=== PATIENT | female | born 1990 | race African-American/Black ===

== ENCOUNTER 2024-02-01 17:07 | Emergency (ER) | payer SELFPAY ==
[2024-02-01 17:12] VITALS: BP 152/91; PULSE 72; RESP 20; TEMP 36.8; O2SAT 96; BMI 40.5
--- NOTE | 2024-02-01 17:15 | ED.GENADULT ---
HPI - General Adult General Chief complaint: Dental/Oral Stated complaint: left lower tooth pain/right side hurts Time Seen by Provider: 02/01/24 18:21 Source: patient Mode of arrival: ambulatory Limitations: no limitations History of Present Illness ED Provider: LUKAS MOROCHO PA-C HPI narrative: 33 year old female presents to the emergency department today for evaluation of left lower dental pain x weeks. Dental pain is localized to left lower molar. No radiation. No trauma or injury to the tooth. She has not noticed any drainage.She states that she has been taking an old prescription of amoxicillin twice daily for the last 7 days. States she does not currently have health insurance and is unable to follow-up with a dentist. She also reports sore throat x 24 hours. Admits to having a fever of 103F yesterday and 101F todays. she has been taking Motrin at home with her last dose being 4 hours ago. Endorses normal PO intake. Denies known sick contacts. Denies dysphagia, difficulty controlling secretions, cough, ear pain., N/V. Related Data Previous Rx's ?Medication ?Instructions ?Recorded benzocaine 15 mg-menthol 2.6 mg 1 flaca mucous membrane Q2-4H PRN 02/01/24 lozenges (Cepacol Sore Throat sore throat #16 ea (benzocaine-menthol)) penicillin V potassium 500 mg 500 mg PO BID 10 days #20 tabs 02/01/24 tablet prednisone 20 mg tablet 40 mg (2 x 20 mg) PO DAILY 5 days 02/01/24 #10 tabs tramadol 50 mg tablet 50 mg PO Q8H PRN pain (scale score 02/01/24 4-6) #7 tabs Allergies Allergy/AdvReac Type Severity Reaction Status Date / Time No Known Allergies Allergy Verified 02/01/24 17:16 [No Known Allergies*] Review of Systems Review of Systems: Constitutional: No fever, chills, fatigue, night sweats, weight changes ENT/Mouth: No ear pain, hearing loss, nasal congestion, sinus pain, rhinorrhea, +sore throat, +odynophagia, No dysphagia, +dental pain Eyes: No eye pain, swelling, redness, vision changes, discharge Cardio: No chest pain, palpitations, [place], orthopnea, peripheral edema Pulm: No SOB, cough, sputum, wheezing, dyspnea, hemoptysis GI: No nausea, vomiting, hematemesis, abdominal pain, diarrhea, constipation, hematochezia, melena : No irregular bleeding, dysuria, frequency, urgency, hesitancy, hematuria, flank pain MSK: No back pain, neck pain, joint pain, myalgias Skin: No lesions, rashes Neuro: No weakness, numbness, paresthesias, LOC, dizziness, headache All other systems reviewed and are negative. [facility] Past Medical History Attestation statement: The following information was validated with the patient. Source: old records reviewed and nursing notes reviewed Social History Social History Advance Directives: No Advance Directives Information Provided: No Do you have a plan to hurt others: No Plan Physical Exam ED Vital Signs: Vital Signs - 24 hr 02/01/24 17:12 02/01/24 18:44 Temperature 98.2 F 97.5 F Pulse Rate 72 63 Respiratory Rate 20 16 Blood Pressure 152/91 H 122/82 Pulse Oximetry 96 97 Oxygen Delivery Method Room Air Room Air BMI result Body Mass Index 40.5 patient hypertensive. Afebrile. Not hypoxic. General: Well appearing, in no acute distress. Skin: Warm, dry, intact. No rashes or lesions. Head: Normocephalic, atraumatic. EENT: Hearing is intact b/l. Conjunctiva clear. PERRLA. EOM intact. Moist mucous membranes.?posterior oropharynx erythematous with bilateral tonsillar swelling and exudates. Uvula midline. Controlling secretions and speaking complete sentences. No muffled voice. No facial edema. Tongue and lips wnl/ multiple dental caries and poor dentition. left lower molar with localized periapical swelling to the buccal ginginva. No pointing. No active bleeding/ discharge. TTP. No palpable fluctuance. no anterior neck swelling. Neck: Tender to palpation along anterior cervical chain without palpable lymphadenopathy. no masses. Cardiac: Chest wall symmetric. RRR Lungs: Normal respiratory effort without accessory muscle use. CTA bilaterally Abdomen: Soft, non-tender, non-distended. No rebound tenderness or guarding. no splenomegally. Neuro: AOx3. Normal speech. Ambulating with steady gait. Course Course Course Narrative: This is a Rapid Medical Examination (RME) performed by Porsche Morocho PA-C in triage. Full HPI, ROS, assessment and treatment plan per primary provider in the Main ED. 33 yo female here for eval of left lower dental pain and sore throat x weeks. she has been taking an old amoxicillin prescription, twice daily for the last 7 days. states she does not have health insurance currently and cannot see her dentist. reprots fever of 103F yesterday and 101F today, taking motrin at home. last dose 4 hours ago + afebrile. general poor dentition with multiple dental caries. no obvious periapical abscess. b/l tonsillar edema/ erythema with exudates. controlling secretions, speaking in full sentences. ttp along anterior cervical chain, no palpable LAD. airway patent. Plan: basic labs, viral/ strep swabs, mono Reevaluation(s) Reevaluation #1: 1123 -- CBC with leukocytosis to 13 without left shift. Chemistry without acute electrolyte abnormality requiring intervention. No CARROLL. Liver function WNL. No transaminitis. She tested negative for COVID, flu, RSV. Negative for mono. She tested positive for strep throat. There is no obvious dental infection or drainable abscess. she was given a dose of Decadron in the ED today. Will send her home with penicillin, prednisone, Cepacol throat lozenges and tramadol for dental pain. Referral for [facility] provided. Patient has remained stable throughout ED visit today. Discussed worrisome signs and symptoms and when to return to the ED. All questions answered at this time. Patient is agreeable with disposition and stable for discharge. Medications Administered Discontinued Medications Generic Name Dose Route Start Last Admin Trade Name Manuel PRN Reason Stop Dose Admin Dexamethasone Sodium Phosphate 10 mg 02/01/24 18:21 02/01/24 18:38 Dexamethasone Sod Phosphate 10 Mg/Ml Vial IVPUSH 02/01/24 18:22 10 mg ONCE ONE Administration Medical Decision Making Medical Decision Making MDM Narrative: 33 year old female presents to the emergency department today for evaluation of left lower dental pain x weeks. Patient initially hypertensive to 152/91, vitals otherwise WNL. Afebrile. Not hypoxic. She is generally well appearing and in NAD. Posterior oropharynx erythematous with bilateral tonsillar swelling and exudates. Uvula midline. Controlling secretions and speaking complete sentences. No muffled voice. No facial edema. Tongue and lips wnl/ multiple dental caries and poor dentition. left lower molar with localized periapical swelling to the buccal ginginva. No pointing. No active bleeding/ discharge. TTP. No palpable fluctuance. No anterior neck swelling. Differential diagnosis includes dental caries, dental infection, dental abscess, viral syndrome, strep throat, mono. 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 Plan for basic blood work, viral/ strep swabs, mono testing Differential Diagnosis Differential Diagnoses: The differential diagnosis associated with the presentation includes as above. Admission/Observation Not indicated Lab Data MDM Lab Attestation statement: I reviewed the patient's lab results. as above 02/01/24 17:25 02/01/24 17:25 Labs: Lab Results 02/01/24 Range/Units 17:25 WBC 13.0 H (4.8-10.8) X10*3/uL RBC 4.52 (4.20-5.50) X10*6/uL Hgb 13.0 (12.0-16.0) g/dl Hct 40.1 (37.0-47.0) % MCV 88.7 (80.0-98.0) fL MCH 28.8 (27.0-33.0) pg MCHC 32.4 (31.0-35.0) g/dl RDW 13.7 (11.0-16.0) % Plt Count 233 (160-400) X10*3/uL MPV 10.5 (9.4-12.3) fL Immature Gran % (Auto) 0.3 (0.0-0.4) % Neut % (Auto) 73.0 (45-73) % Lymph % (Auto) 18.8 L (20-40) % Mccone % (Auto) 6.9 (2-11) % Eos % (Auto) 0.6 (0-4) % Baso % (Auto) 0.4 (0-2) % Lymph # (Auto) 2.4 (1.2-4.9) X10*3/uL Mccone # (Auto) 0.9 (0.1-1.2) X10*3/uL Eos # (Auto) 0.1 (0.0-0.4) X10*3/uL Baso # (Auto) 0.1 (0.0-0.2) X10*3/uL Abs Immat Gran (auto) 0.04 H (0.00-0.03) X10*3/uL Absolute Neuts (auto) 9.5 H (2.0-8.3) x10*3/uL Absolute Nucleated RBC 0.000 (0.0-0.012) X10*3/uL Nucleated RBC % (auto) 0.0 (0.0-0.2) /100WBC Sodium 141 (135-145) mmol/L Potassium 3.8 (3.3-5.1) mmol/L Chloride 106 (96-108) mmol/L Carbon Dioxide 26 (22-29) mmol/L Anion Gap 13 (12-20) BUN 8 L (9-16) mg/dL Creatinine 0.89 (0.5-1.4) mg/dL Estim Creat Clear Calc 118.9 Estimated GFR > 60 Random Glucose 102 (60-115) mg/dL Calcium 9.1 (8.4-10.2) mg/dL Total Bilirubin 0.2 (0.0-1.0) mg/dL AST 17 (5-31) U/L ALT 22 (0-31) U/L Alkaline Phosphatase 65 (39-117) U/L Total Protein 7.3 (6.5-8.0) g/dL Albumin 3.8 (3.5-5.0) g/dL Monoscreen Negative (Negative) Influenza Type A (PCR) NEGATIVE (Negative) Influenza Type B (PCR) NEGATIVE (Negative) RSV RNA Qual (PCR) NEGATIVE (Negative) SARS-CoV-2 RNA (RT-PCR) NEGATIVE (Negative) S. pyogenes GrpA HENRY Positive A (Negative) External Record Review External record reviewed: Inpatient record Prescription Management I considered prescription management with: Antibiotic ( Penicillin) and Other ( Cepacol, prednisone, tramadol) Social Determinants Patient?s care significantly limited by Social Determinants of Health including: Other Social Determinant of Health Critical Care Time Critical Care Time Critical Care Time: No Discharge Plan Discharge Clinical Impression: Acute streptococcal pharyngitis, Dental caries, Dental infection Patient Disposition: Home, Self-Care Instructions: Strep Throat (ED), Tooth Extraction (DC) Additional Instructions: You were evaluated in ED today for dental pain and sore throat. You have a dental infection. You also tested positive for strep throat. Penicillin is an antibiotic that has been sent to your pharmacy. Take this twice daily for the next 10 days to treat strep throat. Do not stop taking these antibiotics early or miss any doses as this may cause infection to return or worsen. Cepacol throat lozenges have been sent to your pharmacy to help with throat pain. Take tylenol/ motrin at home as needed for pain/ fevers. Tramadol is a pain medication that has been sent to your pharmacy for you to take for break-through pain. Use this with caution. YOU NEED TO FOLLOW UP WITH A DENTIST. You have been provided with a referral to [facility]. They are currently taking new clients. Call them to make an appointment. They will not call you. Make sure to change your toothbrush as this contains bacteria. Strep throat is contagious. If anyone else in your household is exhibiting symptoms, please advise them to come to the ED, urgent care, or to see their primary care provider. Return to the Emergency Department if you experience worsening or uncontrolled pain, tongue swelling, difficulty swallowing, change in your voice, difficulty breathing, fevers 100.4?F or greater, recurrent vomiting, development of a rash, or any other concerning symptoms. In the case of emergency, call 911. [facility]: [phone] [id number] [facility] [id number] Prescriptions: New penicillin V potassium 500 mg tablet 500 mg PO BID 10 Days Qty: 20 0RF Cepacol Sore Throat (jordy-men) 15-2.6 mg lozenge 1 flaca mucous membrane Q2-4H PRN (Reason: sore throat) Qty: 16 0RF tramadol 50 mg tablet 50 mg PO Q8H PRN (Reason: pain (scale score 4-6)) Qty: 7 0RF prednisone 20 mg tablet 40 mg PO DAILY 5 Days Qty: 10 0RF Interventions: ED Discharge Assessment Last Done: 02/01/24 18:50 Discharge Date/Time: 02/01/24 18:50 Print Language: Frisian
[2024-02-01 17:48] LABS: MANUAL DIFF FLAG NO
[2024-02-01 17:54] LABS: Basophils Absolute Auto 0.1 X10*3/uL (0.0-0.2); Basophils Percent Auto 0.4 % (0-2); Eosinophils Absolute Auto 0.1 X10*3/uL (0.0-0.4); Eosinophils Percent Auto 0.6 % (0-4); Hematocrit 40.1 % (37.0-47.0); Imm Gran Abs Auto 0.04 X10*3/uL (0.00-0.03); Imm Gran Pct Auto 0.3 % (0.0-0.4); Lymphocytes Absolute Auto 2.4 X10*3/uL (1.2-4.9); Lymphocytes Percent Auto 18.8 % (20-40); Mean Corpuscular HGB Conc 32.4 g/dl (31.0-35.0); Mean Corpuscular Hemoglobin 28.8 pg (27.0-33.0); Mean Corpuscular Volume 88.7 fL (80.0-98.0); Mean Platelet Volume 10.5 fL (9.4-12.3); Monocytes Absolute Auto 0.9 X10*3/uL (0.1-1.2); Monocytes Percent Auto 6.9 % (2-11); Neutrophils Absolute Auto 9.5 x10*3/uL (2.0-8.3); Platelet Count 233 X10*3/uL (160-400); Red Blood Count 4.52 X10*6/uL (4.20-5.50); Red Cell Distribution Width 13.7 % (11.0-16.0)
[2024-02-01 18:00] LABS: IDNOW Serial# 08D9AD1C; Monotest Negative (Negative); Strep A Nucleic Acid Positive (Negative)
[2024-02-01 18:03] LABS: Alanine Aminotransferase 22 U/L (0-31); Albumin Level 3.8 g/dL (3.5-5.0); Alkaline Phosphatase 65 U/L (39-117); Anion Gap 13 (12-20); Aspartate Amino Transferase 17 U/L (5-31); Bilirubin Total 0.2 mg/dL (0.0-1.0); Blood Urea Nitrogen 8 mg/dL (9-16); Calcium 9.1 mg/dL (8.4-10.2); Carbon Dioxide 26 mmol/L (22-29); Chloride 106 mmol/L (96-108); Creatinine Clr Calc Pharmacy 118.9; Estimated Glomerular Filt Rate > 60; Glucose Random 102 mg/dL (60-115); Potassium 3.8 mmol/L (3.3-5.1); Sodium 141 mmol/L (135-145); Total Protein 7.3 g/dL (6.5-8.0)
[2024-02-01 18:27] LABS: Influenza A PCR NEGATIVE (Negative); Influenza B PCR NEGATIVE (Negative); Resp Syncy Virus RNA Qual PCR NEGATIVE (Negative); SARS COV2 PCR INHOUSE NEGATIVE (Negative)
[2024-02-01] MEDS: dexAMETHasone sod phosphate 10 MG/ML VIAL IVPUSH (18:38)
[2024-02-01 18:44] VITALS: BP 122/82; PULSE 63; RESP 16; TEMP 36.4; O2SAT 97
[2024-02-01 18:50] VITALS: BP 122/82; PULSE 63; RESP 16; TEMP 36.4; O2SAT 97
== END 2024-02-01 18:50 | disposition home or self-care (01) ==
PROVIDERS: Physician Assistant Medical; Emergency Provider Emergency Medicine Emergency Medical Services
DX: J02.0 Streptococcal pharyngitis (principal); K04.7 Periapical abscess without sinus; K02.9 Dental caries, unspecified; K08.89 Other specified disorders of teeth and supporting structures; Z03.818 Encounter for observation for suspected exposure to other biological agents ruled out
CPT/HCPCS: 0241U; 80053; 85025; 86308; 87651; 96374; 99283; 99284; J1100

== ENCOUNTER 2024-07-31 17:19 | Emergency (ER) | payer SELFPAY ==
[2024-07-31 17:53] VITALS: BP 121/82; PULSE 80; RESP 20; TEMP 36.7; O2SAT 98; BMI 42.0
--- NOTE | 2024-07-31 18:11 | ED_ITS ---
HPI - General Adult General Chief complaint: Skin/Abscess/Foreign Body Stated complaint: boil on left side Time Seen by Provider: 07/31/24 19:53 Source: patient Mode of arrival: ambulatory Limitations: no limitations History of Present Illness ED Provider: philip martel np HPI narrative: patient is a 34-year-old female who presents emergency department for evaluation of a cyst along the left lateral chest wall. Onset 5-6 days ago. Increasing in size pain and redness with localized swelling. She denies any additional skin rashes or lesions. Denies any history of prior abscesses or cys ts requiring incision and drainage. Denies any trauma to the area. Denies any fevers or chills. She is not a diabetic. Related Data Previous Rx's ?Medication ?Instructions ?Recorded benzocaine 15 mg-menthol 2.6 mg 1 flaca mucous membrane Q2-4H PRN 02/01/24 lozenges (Cepacol Sore Throat sore throat #16 ea (benzocaine-menthol)) penicillin V potassium 500 mg 500 mg PO BID 10 days #20 tabs 02/01/24 tablet prednisone 20 mg tablet 40 mg (2 x 20 mg) PO DAILY 5 days 02/01/24 #10 tabs tramadol 50 mg tablet 50 mg PO Q8H PRN pain (scale score 02/01/24 4-6) #7 tabs cephalexin 500 mg capsule 500 mg PO QID #27 caps 07/31/24 Allergies Allergy/AdvReac Type Severity Reaction Status Date / Time No Known Allergies Allergy Verified 07/31/24 17:56 [No Known Allergies*] Review of Systems Review of Systems: Yes all other systems are reviewed and are negative PMFSH Past Medical History Attestation statement: The following information was validated with the patient. Source: old records reviewed Social History Social History Smoked in Last 30 Days: Yes Use of substances other than those prescribed or required for medical reasons: Yes Substance Use Type: Marijuana Advance Directives: No Advance Directives Information Provided: Yes Do you have a plan to hurt others: No Plan Patient : No Physical Exam ED Vital Signs: Vital Signs - 24 hr 07/31/24 17:53 07/31/24 19:53 Temperature 98.0 F 98.1 F Pulse Rate 80 72 Respiratory Rate 20 16 Blood Pressure 121/82 124/68 Pulse Oximetry 98 99 Oxygen Delivery Method Room Air Room Air BMI result Body Mass Index 42.0 Appearance: Alert.?Oriented to person, place and time. No acute distress.?N ormal affect. CVS: Heart sounds normal. Normal heart rate and rhythm.? Pulses normal.?? Respiratory: No respiratory distress.? Lung sounds clear to auscultation bilaterally?? Abdomen: Soft and non-tender. Normoactive bowel sounds. Skin: Skin warm and dry.? Normal skin color.? Left lateral chest wall with 1 cm abscess fluctuant, scant active serosanguineous drainage, surrounding erythema tenderness upon palpation, it is present between skin folds Extremities: No lower extremity edema.? Neuro: Moves all extremities spontaneously. Sensation intact bilaterally. Ambulates with normal steady gait. Course Course Course Narrative: RME: 34 year female presents to ED for left side rib border that is red and increased in size with swelling. Patient denies having any recent trauma. Ultrasound done at triage shows collection of pus in boil that is erythatmouts and tenderness on palpation. patient to be seen in the ED Medications Administered Discontinued Medications Generic Name Dose Route Start Last Admin Trade Name Freq PRN Reason Stop Dose Admin Cephalexin HCl 500 mg 07/31/24 20:35 07/31/24 21:22 Cephalexin 500 Mg Capsule PO 07/31/24 20:36 500 mg ONCE ONE Administration Lidocaine HCl 5 ml 07/31/24 20:09 07/31/24 21:22 Lidocaine Hcl 1 % Mpf 5 Ml Vial SUBCUT 07/31/24 20:10 5 ml ONCE ONE Administration Procedures Abscess I/D Site: chest Side (if applicable): left Local Anesthetic: lidocaine 1% Amount of anesthesia used (mL): 3 Technique: incised with blade Amount of fluid expressed (mL): 5 Irrigation: Yes Packing used?: none Medical Decision Making Medical Decision Making MDM Narrative: patient is a 34 year old female with past history of obesity who presents emergency department for evaluation they left lateral chest wall abscess as per HPI. History physical exam consistent with abscess And surrounding cellulitis. There is scant serosanguineous drainage, upon palpation able to manually express or decrease the central fluctuance it is present.. No systemic toxicity, and patient is well-appearing. There is surrounding cellulitis. Not consistent with necrotizing fasciitis, myositis, DVT, osteomyelitis. review Indication for incision and drainage, obtained patient consent patient is now status post incision and drainage of abscess and tolerated the procedure well. No complications. No labs or imaging indicated at this time. Will discharge home with course of oral antibiotics and symptomatic treatment instructions. Discussed reasons to return to the emergency department, and follow-up with primary care provider. Patient agreeable with plan of care. Differential Diagnosis Differential Diagnoses: The differential diagnosis associated with the presentation includes ( see narrative above) External Record Review External record reviewed: Outpatient record Prescription Management I considered prescription management with: Pain Medication ( acetaminophen/ibuprofen) and Antibiotic Discharge Plan Discharge Clinical Impression: Abscess of skin or subcutaneous tissue Patient Disposition: Home, Self-Care Instructions: Abscess (ED) Additional Instructions: You were seen in the emergency department today for evaluation of a lap abscess to the left lateral chest wall. This was drained in the emergency department. As discussed, this may continue to drain over the next couple of days. When you can please paper products inspector the shower and be sure to let the hot water rinse over this area for 10-15 minutes in addition to applying warm compresses for 10 15 minutes 3-4 times daily to prevent any additional drainage. You have been started on a course of antibiotics to take by mouth, please complete the entire course, do not stop taking early risk of any doses he. If you begin to feel better. You can take ibuprofen 200 mg, 3 tablets (600mg) every 6-8 hours as needed for pain, in addition to Tylenol 500 mg, 2 tablets (1,000mg) every 4-6 hours as needed for pain, but not to exceed 3 doses daily (3,000mg).? Follow-up with your primary care doctor. Return to emergency department any new or worsening symptoms or concerns which includes but is not limited to fevers, chills, severe worsening pain, increased redness swelling Prescriptions: New cephalexin 500 mg capsule 500 mg PO QID Qty: 27 0RF No Action penicillin V potassium 500 mg tablet 500 mg PO BID 10 Days Qty: 20 0RF Cepacol Sore Throat (jordy-men) 15-2.6 mg lozenge 1 flaca mucous membrane Q2-4H PRN (Reason: sore throat) Qty: 16 0RF tramadol 50 mg tablet 50 mg PO Q8H PRN (Reason: pain (scale score 4-6)) Qty: 7 0RF prednisone 20 mg tablet 40 mg PO DAILY 5 Days Qty: 10 0RF Referrals: ED Physician,Generic [Physician] - Interventions: ED Discharge Assessment Last Done: 07/31/24 21:30 Discharge Date/Time: 07/31/24 21:53 Print Language: Swiss
[2024-07-31 19:53] VITALS: BP 124/68; PULSE 72; RESP 16; TEMP 36.7; O2SAT 99
[2024-07-31] MEDS: cephALEXin 500 MG CAPSULE PO (21:22)
[2024-07-31] MEDS: Lidocaine HCl 1 % MPF 5 ML VIAL SUBCUT (21:22)
[2024-07-31 21:25] VITALS: BP 130/76; PULSE 73; RESP 14; TEMP 36.9; O2SAT 97
[2024-07-31 21:30] VITALS: BP 130/76; PULSE 73; RESP 14; TEMP 36.9; O2SAT 97
== END 2024-07-31 21:53 | disposition home or self-care (01) ==
PROVIDERS: Emergency Provider Emergency Medicine
DX: L02.213 Cutaneous abscess of chest wall (principal)
CPT/HCPCS: 10060; 99284; J2003